=== PATIENT | male | born 1955 | race Two or more races ===

== ENCOUNTER 2017-06-19 09:53 | Emergency (ER) | payer OTHER ==
[2017-06-19 10:10] VITALS: RESP 14; TEMP 97.9
[2017-06-19 10:16] LABS: COLOR YELLOW; LEUKOCYTE ESTERASE,URINE NEGATIVE (NEGATIVE); NITRITE,URINE NEGATIVE (NEGATIVE); PH,URINE 5.5 (5.0-7.5)
--- NOTE | 2017-06-19 10:19 | EDPHY ---
H & P Time Seen by Provider: 06/19/17 10:09 HPI/ROS: HPI Left testicular swelling. 62-year-old male by private vehicle. He complains of swelling to his left testicle for the last 2 days. Denies any history of trauma. He denies any lesions on his genitalia. He has not been sexually active in over a year. No fever. No urinary complaints. No purulent drainage. He denies significant pain. No other complaints. ROS: Constitutional: No fever, no chills. No weakness. Eyes: No discharge. No changes in vision. ENT: No sore throat. No nasal congestion or rhinorrhea. Respiratory: No cough. No shortness of breath. Cardiac: No chest pain, no palpitations. Gastrointestinal: No abdominal pain, no vomiting, no diarrhea. Genitourinary: No hematuria. No dysuria or increased frequency with urination. As above. Musculoskeletal: No back pain. No neck pain. No myalgias or arthralgias. Skin: No rashes. Neurological: No headache. No focal weakness or altered sensation. Past medical history: Orthopedic surgery, cholecystectomy. Social history: Nonsmoker. No alcohol. Here by himself. Physical Exam: General Appearance: Alert, no distress. This patient is responding to questions appropriately and in full sentences. This patient appears well- hydrated and well-nourished. Eyes: Pupils equal and round no pallor or injection. No lid edema, erythema or injection. Testicular exam: He has diffuse scrotal swelling, greater on the left side versus the right. He is nontender over the epididymis. No associated scrotal erythema, crepitus, edema noted. No unusual masses or ecchymosis. No clinical evidence of torsion. No dermal lesions. Unremarkable circumcised penis. No drainage. Gastrointestinal: Abdomen is soft and nontender, no masses, bowel sounds normal. No focal tenderness at McBurney's point. No Skaggs sign. Neurological: Motor sensory function is grossly intact. Cranial nerves are normal. Gait is normal. Skin: Warm and dry, no rashes. Musculoskeletal: Neck is supple and nontender. Extremities are symmetrical. All joints range without pain or impingement. Psychiatric: No agitation. No depression. Database: EKG: Imaging: Testicular ultrasound: Left hydrocele. No orchitis. No epididymitis. No evidence of torsion or other pathology. Otherwise normal. Results were discussed with staff radiologist Dr. David Ramos. Procedures: Emergency department course: Patient was sent for testicular ultrasound from triage. Vital signs reviewed and are normal. Patient is afebrile. 11:00 a.m., patient re-evaluated. Discussed results of ultrasound and diagnosis of left-sided hydrocele with him. Plan will be to have him follow up with Urology for further management. He has been instructed to wear supportive underwear. Return to emergency department precautions were thoroughly reviewed with him. He feels comfortable going home. He understands his follow-up. All of his questions were answered. He was discharged from the emergency department in good condition. Differential Diagnosis: The differential diagnosis on this patient includes but is not limited to hydrocele, varicocele, epididymitis. Testicular torsion, STD unlikely. This represents a partial list of diagnoses considered. These considerations are based on history, physical exam, past history, reassessment and diagnostic testing. Smoking Status: Never smoked Constitutional: Initial Vital Signs Temperature (C) 36.6 C 06/19/17 09:57 Heart Rate 68 06/19/17 09:57 Respiratory Rate 14 06/19/17 09:57 Blood Pressure 128/65 H 06/19/17 09:57 O2 Sat (%) 97 06/19/17 09:57 O2 Delivery Mode Room Air Allergies/Adverse Reactions: hydrocodone Allergy (Verified 06/19/17 10:02) Home Medications: Medication Instructions Recorded Ibuprofen 06/19/17 Medical Decision Making - Data Points Laboratory Results: 06/19/17 10:10 Urine Color YELLOW Urine Appearance CLEAR Urine pH 5.5 (5.0-7.5) Ur Specific [place] 1.010 (1.002-1.030) Urine Protein NEGATIVE (NEGATIVE) Urine Ketones NEGATIVE (NEGATIVE) Urine Blood NEGATIVE (NEGATIVE) Urine Nitrate NEGATIVE (NEGATIVE) Urine Bilirubin NEGATIVE (NEGATIVE) Urine Urobilinogen 0.2 EU EU (0.2-1.0) Ur Leukocyte Esterase NEGATIVE (NEGATIVE) Urine RBC 0-1 /hpf /hpf (0-3) Urine WBC NONE SEEN /hpf /hpf (0-3) Ur Epithelial Cells 1+ /lpf /lpf (NONE-1+) Amorphous Sediment TRACE /hpf /hpf (NONE-1+) Urine Bacteria TRACE /hpf H /hpf (NONE SEEN) Urine Mucus TRACE /lpf /lpf (NONE-1+) Urine Glucose NEGATIVE (NEGATIVE) Departure - Departure Disposition: Home, Routine, Self-Care Clinical Impression: Swelling of left testicle, Hydrocele of testis Condition: Good Instructions: Hydrocele (ED) Additional Instructions: Read and follow provided instructions. Follow-up with with Urology on Friday or Friday of next week for re-evaluation and further management. Call the office of Dr. Lopes today for appointment time. Explain that this is for an emergency department follow-up for your testicular hydrocele. Wear supportive underwear for comfort. Return to the emergency department for worsening pain, swelling, discoloration, fever or other serious concerns. Referrals: Leobardo Lopes MD [Medical Doctor] - As per Instructions
[2017-06-19 10:26] LABS: RBC,URINE 0-1 /hpf (0-3); WBC,URINE NONE SEEN /hpf (0-3)
[2017-06-19 10:27] LABS: BACTERIA TRACE /hpf (NONE SEEN); MUCUS TRACE /lpf (NONE-1+)
[2017-06-19 10:28] LABS: AMORPHOUS TRACE /hpf (NONE-1+)
[2017-06-19 11:21] VITALS: BP 137/94; PULSE 63; O2SAT 95
== END 2017-06-19 11:21 | disposition home or self-care (01) ==
LOC: CED 09:53
DX: N43.3 Hydrocele, unspecified (principal)
CPT/HCPCS: 76870-PO; 81003-PO; 81015-PO